=== PATIENT | female | born 1950 | race Caucasian/White ===

== ENCOUNTER 2017-04-08 12:11 | Emergency (ER) | payer OTHER ==
[~2017-04-08 12:11] MED LIST: ABILIFY15 M1 PO; ABILIFY5 M1 PO; ARICEPT10 MG PO; ATIVAN1 MG PO; ATIVAN2 MG; BUSPIRONE HCL5 MG PO; CITALOPRAM10 M1 PO; HALOPERIDOL5 MG PO; METFORMIN500 M1 PO; PRI20 PO; PROLIA60 MG/ML SC
[2017-04-08 13:06] LABS: CALCIUM 8.6 mg/dL (8.5-10.1); CARBON DIOXIDE 27.1 mmol/L (21-32); CHLORIDE SERUM 107 mmol/L (98-107); CREATININE SERUM 0.8 mg/dL (0.6-1.0); GFR1 > 60 mL/min; GLUCOSE SERUM 88 mg/dL (74-106); POTASSIUM SERUM 3.4 mmol/L (3.5-5.1); SODIUM SERUM 141 mmol/L (136-145)
[2017-04-08 13:11] LABS: ALBUMIN 3.5 g/dL (3.4-5.0); ALKALINE PHOSPHATASE 56 U/L (46-116); ALT/SGPT 16 U/L (14-59); AST/SGOT 18 U/L (15-37); BILIRUBIN TOTAL 0.97 mg/dL (0.20-1.00); TOTAL PROTEIN, SERUM 7.2 g/dL (6.4-8.2)
[2017-04-08 15:47] VITALS: BP 148/91
== END 2017-04-08 15:47 | disposition home or self-care (01) ==
LOC: ED 12:11
PROVIDERS: Emergency Medicine
DX: R53.1 Weakness (principal); R42 Dizziness and giddiness; R03.0 Elevated blood-pressure reading, without diagnosis of hypertension; F03.90 Unspecified dementia, unspecified severity, without behavioral disturbance, psychotic disturbance, mood disturbance, and anxiety; F31.9 Bipolar disorder, unspecified; F20.9 Schizophrenia, unspecified; F41.9 Anxiety disorder, unspecified; Z86.59 Personal history of other mental and behavioral disorders
CPT/HCPCS: 36415

== ENCOUNTER 2017-08-17 15:35 | Emergency (ER) | payer OTHER ==
[~2017-08-17] VITALS: Ht 157.5 cm; Wt 45.5 kg
[2017-08-17 15:44] VITALS: Ht 157.5 cm; Wt 45.5 kg
[2017-08-17 17:20] LABS: BASOPHIL % 0.3 % (0-2); PLATELET COUNT 199 x10^3mcL (130-400); RED CELL DISTRIBUTION WIDTH 14.1 % (11.5-14.5)
[2017-08-17 17:25] LABS: CALCIUM 8.8 mg/dL (8.5-10.1); CARBON DIOXIDE 24.4 mmol/L (21-32); CHLORIDE SERUM 106 mmol/L (98-107); CREATININE SERUM 0.9 mg/dL (0.6-1.0); GFR1 > 60 mL/min; GLUCOSE SERUM 119 mg/dL (74-106); POTASSIUM SERUM 3.8 mmol/L (3.5-5.1); SODIUM SERUM 142 mmol/L (136-145)
[2017-08-17 17:31] LABS: ALBUMIN 3.4 g/dL (3.4-5.0); ALKALINE PHOSPHATASE 65 U/L (46-116); ALT/SGPT 18 U/L (14-59); AST/SGOT 28 U/L (15-37); BILIRUBIN TOTAL 1.16 mg/dL (0.20-1.00); TOTAL PROTEIN, SERUM 7.4 g/dL (6.4-8.2)
[2017-08-17 18:18] VITALS: BP 100/61
== END 2017-08-17 18:18 | disposition home or self-care (01) ==
LOC: ED 15:35
PROVIDERS: Emergency Medicine
DX: S52.021A Displaced fracture of olecranon process without intraarticular extension of right ulna, initial encounter for closed fracture (principal); S00.03XA Contusion of scalp, initial encounter; F31.9 Bipolar disorder, unspecified; F03.90 Unspecified dementia, unspecified severity, without behavioral disturbance, psychotic disturbance, mood disturbance, and anxiety; F20.9 Schizophrenia, unspecified; X58.XXXA Exposure to other specified factors, initial encounter; Y93.89 Activity, other specified; Y92.89 Other specified places as the place of occurrence of the external cause; Y99.8 Other external cause status
CPT/HCPCS: 36415

== ENCOUNTER 2018-01-05 21:06 | Emergency (ER) | payer OTHER ==
[~2018-01-05] VITALS: Ht 152.4 cm; Wt 48.5 kg
[2018-01-05 21:54] VITALS: BP 112/84; Ht 152.4 cm; Wt 48.5 kg
== END 2018-01-05 23:52 | disposition left against medical advice (07) ==
LOC: ED 21:06
DX: Z53.21 Procedure and treatment not carried out due to patient leaving prior to being seen by health care provider (principal)